=== PATIENT | male | born 1935 | race African-American/Black ===

== ENCOUNTER 2023-04-12 11:33 | Emergency (ER) | payer BC, MEDICARE ==
[~2023-04-12] VITALS: Ht 182.9 cm; Wt 78.2 kg
[2023-04-12 11:51] VITALS: BP 136/70; PULSE 76; RESP 18; TEMP 98.7; O2SAT 100
[2023-04-12 14:40] LABS: BASOPHILS % 0.6 % (0.0-2.0); HEMATOCRIT. 39.5 % (42.0-52.0); HEMOGLOBIN. 12.5 g/dL (14.0-18.0); LYMPHOCYTES % 16.8 % (20.0-50.0); MEAN CORPUSCULAR HEMOGLOBIN 24.6 pg (28.0-32.0); MEAN PLATELET VOLUME 9.8 fl (7.4-10.4); MONOCYTES % 8.2 % (2.0-8.0); NEUTROPHILS % 74.4 % (40.0-76.0); PLATELET 176 x1000/uL (130-400); RED BLOOD CELL COUNT 5.06 mill/uL (4.7-6.1); RED CELL DISTRIBUTION WIDTH 14.5 % (11.6-14.6)
[2023-04-12 14:44] LABS: CHLORIDE 104 mEq/L (98-107)
[2023-04-12] MEDS ORDERED: IBUP-2029 MT (16:59)
[2023-04-12] MEDS ORDERED: DOCU250C14 MT (16:59)
[2023-04-12 20:26] LABS: CLARITY URINE CLOUDY (CLEAR); COLOR URINE YELLOW (YELLOW); KETONES URINE 1+ (NEGATIVE); LEUKOCYTE ESTERASE URINE 3+ (NEGATIVE); NITRITE URINE NEGATIVE (NEGATIVE); OCCULT BLOOD URINE NEGATIVE (NEGATIVE); PROTEIN URINE 1+ (NEGATIVE); SPECIFIC GRAVITY URINE 1.015 (1.005-1.030)
== END 2023-04-12 17:59 | disposition home or self-care (01) ==
LOC: ER 12:06
DX: R10.9 Unspecified abdominal pain (principal); K40.90 Unilateral inguinal hernia, without obstruction or gangrene, not specified as recurrent; I10 Essential (primary) hypertension
CPT/HCPCS: 36415; 74176; 80053; 81003; 85025; 99284